=== PATIENT | female | born 2000 | race Caucasian/White ===

== ENCOUNTER 2019-01-06 18:06 | Emergency (ER) | payer SELFPAY ==
[~2019-01-06] VITALS: Ht 162.6 cm; Wt 78.8 kg
[2019-01-06 18:10] VITALS: BP 142/88; PULSE 120; RESP 16; Ht 162.6 cm; Wt 78.8 kg
== END 2019-01-06 21:53 | disposition left against medical advice (07) ==
LOC: FTE 18:06
DX: Z53.21 Procedure and treatment not carried out due to patient leaving prior to being seen by health care provider (principal)